=== PATIENT | female | born 1970 | race Hispanic/Latino ===

== ENCOUNTER 2018-03-12 10:37 | Outpatient (CLI) | payer OTHER | END 2018-03-12 10:38 | disposition home or self-care (01) | LOC: BICRAD 10:37 | PROVIDERS: ATTEND Internal Medicine | DX: J45.50 Severe persistent asthma, uncomplicated (principal) | CPT/HCPCS: 71046 ==

== ENCOUNTER 2018-05-28 09:47 | Outpatient (CLI) | payer OTHER ==
--- NOTE | 2018-05-28 12:02 | RAD ---
THREE VIEWS OF THE RIGHT SHOULDER: COMPARISON: None. HISTORY: Right shoulder pain/bursitis. FINDINGS: Three views of the right shoulder show no evidence of acute fracture or dislocation. There is calcif ication along the greater tuberosity which may represent calcific bursitis or calcific tendinopathy. No degenerative changes are seen. IMPRESSION: Calcification along the greater tuberosity may represent calcific tendinopathy or calcific bursitis. POS: [facility]
== END 2018-05-28 09:48 | disposition home or self-care (01) ==
LOC: BICRAD 09:47
PROVIDERS: ATTEND Nurse Practitioner Family
DX: M75.51 Bursitis of right shoulder (principal); M25.811 Other specified joint disorders, right shoulder